=== PATIENT | male | born 1985 | race Caucasian/White ===

== ENCOUNTER 2023-08-18 05:32 | Emergency (ER) | payer SELFPAY ==
[~2023-08-18] VITALS: Ht 172.7 cm; Wt 96.0 kg
[2023-08-18 05:45] VITALS: TEMP 97.5
[2023-08-18 07:20] VITALS: BP 125/77; PULSE 83; RESP 14; O2SAT 100
== END 2023-08-18 09:34 | disposition left against medical advice (07) ==
LOC: ER 05:34
DX: S81.801A Unspecified open wound, right lower leg, initial encounter (principal); Z53.21 Procedure and treatment not carried out due to patient leaving prior to being seen by health care provider; F15.90 Other stimulant use, unspecified, uncomplicated; X58.XXXA Exposure to other specified factors, initial encounter; Y93.89 Activity, other specified; Y92.89 Other specified places as the place of occurrence of the external cause; Y99.8 Other external cause status
CPT/HCPCS: 36415; 87040